=== PATIENT | female | born 1965 | race Caucasian/White ===

== ENCOUNTER 2016-05-23 11:39 | Emergency (ER) | payer OTHER ==
[2016-05-23 12:09] VITALS: BP 142/71
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
--- NOTE | 2016-05-23 12:59 | CT ---
Head wo Cont Total DLP 767 mGycm. INDICATION: trauma, headache and blurred vision COMPARISON: CT 05/31/2010. FINDINGS: No acute intracranial hemorrhage, mass, or edema. Ventricular size is within normal limits . Visualized paranasal sinuses and mastoid air cells are clear. Remainder unremarkable. IMPRESSION: Negative head CT.
[2016-05-23] MEDS ORDERED: Ondansetron 4 MG Tab.DIS PO ONE (13:07)
[2016-05-23] MEDS ORDERED: Ketorolac 60 MG/2 ML SDV IM ONE (13:07)
== END 2016-05-23 14:21 | disposition home or self-care (01) ==
LOC: JP.ED 11:39
DX: S06.0X0A Concussion without loss of consciousness, initial encounter (principal); R01.1 Cardiac murmur, unspecified; E03.9 Hypothyroidism, unspecified; F17.210 Nicotine dependence, cigarettes, uncomplicated; Z98.890 Other specified postprocedural states; Z88.0 Allergy status to penicillin; W22.8XXA Striking against or struck by other objects, initial encounter
CPT/HCPCS: 70450; 96372; 99284; A9270; J1885; 99283

== ENCOUNTER 2016-08-26 23:36 | Emergency (ER) | payer OTHER ==
[2016-08-27 00:46] VITALS: BP 143/87
[2016-08-27] MEDS ORDERED: Ketorolac 30 MG/ML SDV IVPUSH ONE (01:03)
[2016-08-27] MEDS ORDERED: Prochlorperazine 10 MG/2 ML SDV IVPUSH ONE (01:04)
[2016-08-27] MEDS ORDERED: diphenhydrAMINE 50 MG/ML SDV IVPUSH ONE (01:04)
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
[2016-08-27] MEDS: Sodium Chloride 0.9% 10 ML Syringe FLUSH PRN ×3 (01:11→01:31)
[2016-08-27] MEDS ORDERED: Sodium Chloride 0.9% 1,000 ML IV SCH (01:15)
[2016-08-27] MEDS ORDERED: Haloperidol Lactate 5 MG/ML SDV IVPUSH ONE (01:49)
[2016-08-27] MEDS ORDERED: Dexamethasone 4 MG/ML SDV IVPUSH ONE (01:49)
== END 2016-08-27 03:19 | disposition home or self-care (01) ==
LOC: JP.ED 23:36
DX: G43.909 Migraine, unspecified, not intractable, without status migrainosus (principal); E03.9 Hypothyroidism, unspecified; F17.210 Nicotine dependence, cigarettes, uncomplicated; Z88.0 Allergy status to penicillin
CPT/HCPCS: 96361; 96374; 96375; 99283; J0780; J1100; J1200; J1630; J1885; J7040; J7050

== ENCOUNTER 2016-12-27 14:23 | Observation (INO) | payer MEDICAID, OTHER ==
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
--- NOTE | 2016-12-27 18:41 | PCM.HP ---
H&P History of Present Illness - General Date of Service: 12/27/16 Admit Problem/Dx: Admission Diagnosis/Problem Admission Diagnosis/Problem Chest pain Source of Information: Patient, Provider, RN Notes Reviewed History Limitations: Reports: No Limitations - History of Present Illness Initial Comments - Free Text/Narative: Ms. Galvan is a 51-year-old woman who is admitted to observation status for further evaluation and management of chest pain. She was feeling well until she woke last night at 10:30 with very rapid heart rate that lasted a minute or 2 and was associated with intense pain in her left upper chest. After heart rate returned to normal pain seemed to improve significantly but did not totally resolved. She was able to sleep until this morning but when she woke up noted an ache in her left upper chest described as moderate, pain has been present ever since this morning. She denies any fevers chills sweats or productive cough. Pain does radiate into the left shoulder and down into the left arm as well as into the posterior neck. She is noted no precipitating or relieving factors. Risk factor for coronary artery disease includes a [id number]-[id number] smoking history as well as a family history of coronary artery disease. She denies a personal history of hypertension, hypercholesterolemia, or diabetes. Chest Pain Score (Numeric/FACES): 6 - Related Data Allergies/Adverse Reactions: Allergies Allergy/AdvReac Type Severity Reaction Status Date / Time Penicillins Allergy Hives Verified 12/27/16 15:03 Home Medications: Home Meds Baclofen [Baclofen] 10 mg PO TID 12/27/16 [History] Propranolol HCl [Inderal LA] 60 mg PO DAILY 12/27/16 [History] Past Medical History HEENT History: Reports: Impaired Vision Cardiovascular History: Reports: Heart Murmur [employer]ER History: Reports: Musculoskeletal History: Reports: None Neurological History: Reports: Concussion, Headaches, Chronic Other Neuro History: Concussion May 22 2016 Endocrine/Metabolic History: Reports: Hypothyroidism - Infectious Disease History Infectious Disease History: Reports: Chicken Pox, Measles, Mumps - Past Surgical History Female Surgical History: Reports: Tubal Ligation Endocrine Surgical History: Reports: Thyroidectomy Other Musculoskeletal Surgeries/Procedures:: 1st ribs removed on both right and left Social & Family History - Tobacco Use Smoking Status *Q: Current Every Day Smoker Years of Tobacco use: 37 Packs/Tins Daily: 0.5 - Caffeine Use Caffeine Use: Reports: Coffee - Alcohol Use Days Per Week of Alcohol Use: 3 Number of Drinks Per Day: 3 Total Drinks Per Week: 9 - Recreational Drug Use Recreational Drug Use: No H&P Review of Systems - Review of Systems: Review Of Systems: See Below General: Denies: Fever, Chills, Weakness, Diaphoresis HEENT: Reports: No Symptoms Pulmonary: Reports: No Symptoms Cardiovascular: Reports: Chest Pain, Palpitations. Denies: Dyspnea on Exertion , Orthopnea, PND, Edema, Lightheadedness Gastrointestinal: Reports: No Symptoms Genitourinary: Reports: No Symptoms Musculoskeletal: Reports: No Symptoms Skin: Reports: No Symptoms Psychiatric: Reports: No Symptoms Neurological: Reports: Headache. Denies: Confusion, Dizziness, Numbness, Weakness, Change in Speech Hematologic/Lymphatic: Reports: No Symptoms Immunologic: Reports: No Symptoms Exam - Exam Exam: See Below - Vital Signs Vital Signs: Last Vital Signs Temp 96.4 F 12/27/16 14:52 Pulse 57 L 12/27/16 16:25 Resp 16 12/27/16 16:25 BP 115/55 L 12/27/16 16:25 Pulse Ox 100 12/27/16 16:25 Weight: 137 lb 9.095 oz - Exam Quality Assessment: DVT Prophylaxis General: Alert, Oriented, Cooperative, Mild Distress HEENT: Conjunctiva Clear, Hearing Intact, Mucosa Moist & [place], Normal Nasal Septum, Posterior Pharynx Clear, Pupils Equal Neck: Supple, Trachea Midline, +2 Carotid Pulse wo Bruit Lungs: Clear to Auscultation, Normal Respiratory Effort Cardiovascular: Regular Rate, Regular Rhythm, Normal S1, Normal S2. No: Tachycardia, Systolic Murmur, Diastolic Murmur GI/Abdominal Exam: Normal Bowel Sounds, Soft, Non-Tender, No Organomegaly, No Distention Back Exam: Normal Inspection, Full Range of Motion Extremities: Non-Tender, No Pedal Edema Skin: Warm, Dry, Intact Neurological: Cranial Nerves Intact, Strength Equal Bilateral, Normal Speech, Normal Tone, Sensation Intact. No: Focal Deficit Neuro Extensive - Mental Status: Alert, Oriented x3, Normal Mood/Affect, Normal Cognition, Memory Intact - Patient Data Result Diagrams: 12/27/16 15:58 12/27/16 15:58 *Q Meaningful Use (ADM) - VTE *Q VTE Criteria *Q: - VTE Risk Assess *Q Each Risk Factor Represents 1 Point: Age 41 - 59 years Total Score 1 Point Risk Factors: 1 Each Risk Factor Represents 2 Points: None Total Score 2 Point Risk Factors: 0 Each Risk Factor Represents 3 Points: None Total Score 3 Point Risk Factors: 0 Each Risk Factor Represents 5 Points: None Total Score 5 Point Risk Factors: 0 Venous Thromboembolism Risk Factor Score *Q: 1 - Stroke *Q Stroke Criteria *Q: - AMI *Q AMI Criteria *Q: Problem List Initiated/Reviewed/Updated: Yes Orders Last 24hrs: Active Orders 24 hr Category Date Time Status Resuscitation Status Routine Resus Stat 12/27/16 18:15 Ordered Assessment/Plan Comment:: ASSESSMENT AND PLAN CHEST PAIN-onset this morning and present throughout the day. Following an episode of rapid heart rate and intense pain last night that lasted at most a few minutes. No previous history of heart disease, there is family history of coronary artery disease as well as a personal history of smoking 35 pack years. Heart score of 4. -Observation admission -Serial troponin levels -Exercise Cardiolite study in a.m. MAINTENANCE ISSUES -DVT prophylaxis; SCUDs -GI prophylaxis; not indicated -Machado catheter; not indicated -Nutrition; regular diet -Nicotinic dependence; 21 mg nicotinic patch CODE STATUS-FULL CODE ADMISSION STATUS-this patient will be admitted to observation status, expect no more than a one night hospital stay for evaluation and management of problems as outlined above. DISPOSITION-anticipate discharge to home after the hospital stay. PRIMARY CARE PROVIDER-
[2016-12-27] MEDS ORDERED: Acetaminophen 325 MG Tab PO PRN (18:49)
[2016-12-27] MEDS ORDERED: Sodium Chloride 0.9% 10 ML Syringe FLUSH PRN (18:49)
[2016-12-27] MEDS ORDERED: Ondansetron 4 MG/2 ML SDV IV PRN (18:49)
[2016-12-27] MEDS ORDERED: Magnesium Hydroxide 400 MG/5 ML Susp 30 ML Cup PO PRN (18:49)
[2016-12-27] MEDS ORDERED: Docusate Sodium 100 MG Cap PO PRN (18:49)
[2016-12-27] MEDS ORDERED: Nicotine Polacrilex 2 MG Gum CHEW PRN (18:52)
[2016-12-27] MEDS: Baclofen 10 MG Tab PO SCH ×2 (19:33→20:03)
[2016-12-27] MEDS: Nicotine 21 MG/24 Hr Patch TRDERM SCH (20:02)
[2016-12-27] MEDS: oxyCODONE 5 MG Tab PO PRN (20:58)
[2016-12-27] MEDS ORDERED: cefTRIAXone 1 GM in Sodium Chloride 0.9% 50 ML IV SCH (23:00)
[2016-12-27] MEDS: HYDROmorphone 0.5 MG/0.5 ML Syringe IVPUSH PRN (23:04)
[2016-12-28] MEDS: HYDROmorphone 0.5 MG/0.5 ML Syringe IVPUSH PRN ×3 (05:15→12:45)
[2016-12-28] MEDS: Baclofen 10 MG Tab PO SCH ×2 (08:35→14:28)
[2016-12-28] MEDS: Nicotine 21 MG/24 Hr Patch TRDERM SCH (08:35)
--- NOTE | 2016-12-28 08:38 | CR ---
Heart size within normal limits. Surgical clips about the apices bilaterally. Prominent vasculature w ithin normal limits. Mild increased attenuation within the lung bases bilaterally right greater than left. This may relate to overlying soft tissues only but recommend lateral view follow-up.
[2016-12-28] MEDS: oxyCODONE 5 MG Tab PO PRN (11:38)
--- NOTE | 2016-12-28 14:17 | NM ---
Nuclear medicine myocardial perfusion scan. Technique: 10.05 mCi technetium Myoview administered at rest and 28.0 mCi technetium Myoview administ ered at stress. Alonzo protocol. Patient did not reached targeted heart rate. Findings: Small defect within the base of the myocardium on stress images at the anterior septal myoc ardial wall is not well-visualized on planar images. It is evident on Polar map images. Heart wall mo tion within normal limits. Ejection fraction on stress is 60% and 61% on rest. Impression: 1. Small defect which appears reversible within the base of the myocardium on stress images. This is nonvisualized on planar images and would favor artifact over ischemia. Otherwise no evidence for defe cts on stress imaging.
[2016-12-28] MEDS ORDERED: Sodium Chloride 0.9% 10 ML Syringe FLUSH PRN (14:29)
[2016-12-28] MEDS ORDERED: Iopamidol 755 Mg/ML 100 ML Bottle IV SCH (14:30)
[2016-12-28 15:57] VITALS: BP 104/55
--- NOTE | 2016-12-28 17:12 | PCM.DCSUM1 ---
Discharge Summary - Hospital Course Brief History: Ms. Galvan is a 51-year-old woman admitted through the emergency department observation status for further evaluation and management of chest pain. - Discharge Data Discharge Date: 12/28/16 Discharge Disposition: Home, Self-Care 01 Condition: Good - Discharge Diagnosis/Problem(s) (1) UTI (urinary tract infection) SNOMED Code(s): 59077674 ICD Code: N39.0 - URINARY TRACT INFECTION, SITE NOT SPECIFIED Status: Acute Current Visit: Yes (2) Chest pain SNOMED Code(s): 59796248 ICD Code: R07.9 - CHEST PAIN, UNSPECIFIED Status: Acute Current Visit: Yes - Patient Summary/Data Hospital Course: Ms. Galvan is a 51-year-old woman admitted through the emergency department observation status for further evaluation of chest pain. She woke in the evening prior to admission with rapid heart rate and severe pain in her left upper chest. Symptoms lasted just a minute or 2 and then resolved and she was able to get back to sleep. When she woke in the morning noted moderate pressure sensation in her left upper chest described as an ache, pain radiated to the back of her neck as well as into the left shoulder and arm. Pain was persistent and did not change with activity or position. She noted no other precipitating or relieving factors, it was associated with some shortness of breath. Initial EKG showed nonspecific ST segment changes and troponin was within normal range. Risk factors for coronary artery disease include a positive family history as well as a 20-ymrl-ugfr smoking history. Heart score was calculated and found to be 4. She was admitted to observation status, serial troponin levels were obtained and were within normal range. Pain persisted through the night and into the next day of hospitalization. Exercise Cardiolite study was obtained, she was able to exercise for 11 minutes on the Alonzo protocol, pain did increase with level of activity. Treadmill exercise portion study was interpreted as negative showing no evidence of ischemia. Cardiolite study showed only a very small area of reperfusion that was felt to be most likely artifact. Because of persistent pain CT scan of the chest was obtained with contrast and showed no evidence of pulmonary embolism, infiltrate, or other significant abnormality. She will be discharged home, activity will be as tolerated and she will resume her usual diet. Follow-up appointment will be scheduled with her primary care provider within one week. - Patient Instructions Diet: Usual Diet as Tolerated Activity: As Tolerated Other/Special Instructions: Please schedule follow-up appointment with Berry Ozuna within 1 week. - Discharge Plan Prescriptions/Med Rec: Sulfamethoxazole/Trimethoprim [Septra DS] 1 each PO BID #14 tab Home Medications: Home Meds Baclofen 10 mg PO TID 12/27/16 [History] Sulfamethoxazole/Trimethoprim [Septra DS] 1 each PO BID #14 tab 12/28/16 [Rx] Referrals: Berry Ozuna PA-C [Primary Care Provider] - - Patient Data Vitals - Most Recent: Last Vital Signs Temp 96.6 F 12/28/16 08:00 Pulse 62 12/28/16 15:00 Resp 15 12/28/16 15:00 BP 104/55 L 12/28/16 15:00 Pulse Ox 99 12/28/16 15:00 Weight - Most Recent: 135 lb 12.876 oz I&O - Last 24 hours: Intake & Output 12/28/16 12/28/16 12/28/16 06:59 14:59 22:59 Intake Total 750 850 Output Total 300 400 Balance 450 450 Lab Results - Last 24 hrs: Laboratory Results - last 24 hr 12/27/16 12/27/16 12/28/16 Range/Units 21:07 21:57 05:05 Troponin I < 0.017 < 0.017 (0.000-0.056) ng/mL Urine Color Yellow Urine Appearance Slightly cloudy Urine pH 5.0 (4.5-8.0) Ur Specific [place] 1.020 (1.008-1.030) Urine Protein Negative (NEGATIVE) mg/dL Urine Glucose (UA) Normal (NEGATIVE) mg/dL Urine Ketones Negative (NEGATIVE) mg/dL Urine Occult Blood Large (NEGATIVE) Urine Nitrite Positive H (NEGATIVE) Urine Bilirubin Negative (NEGATIVE) Urine Urobilinogen Normal (NORMAL) mg/dL Ur Leukocyte Esterase Negative (NEGATIVE) Urine RBC 0-5 (0-5) Urine WBC 5-10 H (0-5) Ur Epithelial Cells Few Amorphous Sediment Not seen Urine Bacteria Many Urine Mucus Moderate Med Orders - Current: Current Medications Acetaminophen (Tylenol) 650 mg PO Q4H PRN PRN Reason: Pain (Mild 1-3)/fever Last Admin: 12/27/16 20:03 Dose: 650 mg Baclofen (Lioresal) 10 mg PO TID [facility] Last Admin: 12/28/16 14:28 Dose: 10 mg Docusate Sodium (Colace) 100 mg PO BID PRN PRN Reason: Constipation Hydromorphone HCl (Dilaudid) 0.5 mg IVPUSH Q2H PRN PRN Reason: Chest Pain Last Admin: 12/28/16 12:45 Dose: 0.5 mg Ceftriaxone Sodium 1 gm/ (Sodium Chloride) 50 mls @ 100 mls/hr IV Q24H [facility] Last Admin: 12/27/16 23:07 Dose: 100 mls/hr Magnesium Hydroxide (Milk Of Magnesia) 30 ml PO Q12H PRN PRN Reason: Constipation Nicotine (Habitrol) 21 mg TRDERM DAILY [facility] Last Admin: 12/28/16 08:35 Dose: 21 mg Nicotine Polacrilex (Nicorelief) 2 mg CHEW Q1H PRN PRN Reason: Other Ondansetron HCl (Zofran) 4 mg IV Q4H PRN PRN Reason: Nausea/Vomiting Oxycodone HCl (Oxycodone) 5 mg PO Q4H PRN PRN Reason: Pain (moderate 4-6) Last Admin: 12/28/16 11:38 Dose: 5 mg Sodium Chloride (Saline Flush) 10 ml FLUSH ASDIRECTED PRN PRN Reason: Keep Vein Open Last Admin: 12/28/16 14:51 Dose: 10 ml Discontinued Medications Sodium Chloride (Normal Saline) 70 mls @ 3 mls/sec IV ASDIRECTED ONE Stop: 12/28/16 14:30 Last Admin: 12/28/16 14:51 Dose: 3 mls/sec Iopamidol (Isovue-370 (76%)) 100 ml IV . DIRECTED [facility] Stop: 12/28/16 15:00 Last Admin: 12/28/16 14:51 Dose: 100 ml Sodium Chloride (Saline Flush) 10 ml FLUSH . DIRECTED PRN PRN Reason: [id number] EXAM Stop: 12/28/16 15:00 *Q Meaningful Use (DIS) - VTE *Q VTE Criteria *Q: - Stroke *Q Stroke Criteria *Q: - AMI *Q AMI Criteria *Q:
--- NOTE | 2016-12-29 10:53 | STRESS ---
DATE OF SERVICE: 12/28/2016 PROCEDURE: Exercise Cardiolite study. TECHNIQUE: Ms. Galvan was exercised for 11 minute on the Alonzo protocol for the exercise portion of the exercise Cardiolite study. She completed 2 minutes of stage IV at 4.2 miles/hour and 16 degrees elevation. Test was stopped because of symptoms of chest pressure and shortness of breath. She was able to reach a pressure rate of 15,700 and a workload of 12.8 METS. Resting heart rate was 73 and went to 133 with exercise, this was equal to 79% of predicted maximal heart rate. Resting blood pressure was 98/60 and went to 118/72 with exercise. Resting ECG, sinus rhythm, rate of 62, normal axis and intervals. Otherwise, normal appearing EKG. No significant changes were seen on the post hyperventilation or standing ECGs. There were no significant ST-segment changes, T-wave abnormalities seen with exercise or in the post exercise period. She did experience symptoms as reported above. Occasional premature ventricular complexes were noted throughout the monitoring period. IMPRESSION: Negative treadmill exercise test with adequate level of exercise, close to 85% of predicted maximal heart rate was reached with this level of exercise. Michoacano Gonsalez MD /[id number]
== END 2016-12-28 17:19 | disposition home or self-care (01) ==
LOC: JP.ED 14:23 → JP.ICU 18:14
PROVIDERS: ADMIT Hospitalist; ATTEND Hospitalist
DX: R07.9 Chest pain, unspecified (principal); E89.0 Postprocedural hypothyroidism; N39.0 Urinary tract infection, site not specified; Z82.49 Family history of ischemic heart disease and other diseases of the circulatory system; Z88.0 Allergy status to penicillin; Z98.51 Tubal ligation status; Z90.89 Acquired absence of other organs; F17.210 Nicotine dependence, cigarettes, uncomplicated
CPT/HCPCS: 36415; 71010; 71275; 78452; 80053; 81001; 84439; 84443; 84484; 85025; 87086; 87186; 93005; 93010; 93017; 96365; 96375; 96376; 99285; A9270; A9500; G0378; J0696; J1170; J7030; J7050; Q9967; 99217; 99219

== ENCOUNTER 2017-07-18 07:33 | Day surgery (SDC) | payer MEDICAID ==
[2017-07-18] MEDS ORDERED: fentaNYL 100 MCG/2 ML SDV ONE (08:15)
[2017-07-18] MEDS ORDERED: Lactated Ringers 1,000 ML IV SCH (08:15)
[2017-07-18] MEDS ORDERED: Midazolam 1 MG/ML 2 ML SDV ONE (08:16)
[2017-07-18] MEDS ORDERED: Propofol 200 MG/20 ML SDV ONE (08:16)
[2017-07-18 10:07] VITALS: BP 105/63
--- NOTE | 2017-07-19 08:13 | OR ---
DATE OF PROCEDURE: 07/18/2017 PREOPERATIVE DIAGNOSIS: Colon cancer screening. POSTOPERATIVE DIAGNOSIS: Two small colon polyps, mid-transverse colon and splenic flexure. PROCEDURES: Colonoscopy to the cecum with biopsy resection of 2 small colon polyps. ANESTHESIA: IV anesthesia with monitored anesthesia care. INDICATION: This 52-year-old white female is referred for a colonoscopy for colon cancer screening. She has never had a colonoscopic exam. I counseled her for the procedure including risks and alternatives, and she gave her informed consent to proceed. DESCRIPTION OF PROCEDURE: The patient was placed in the left lateral decubitus position. IV anesthesia was administered by the Anesthesia Service. Time-out was held. A rectal exam was performed, which was unremarkable. The flexible video Olympus colonoscope was introduced through her anus, up her rectum, and out her colon, all the way to the cecum. Once the cecum was reached, the scope was slowly withdrawn, examining the mucosa throughout. In the mid-transverse colon, we saw a small polyp, which was removed with a few bites of biopsy forceps. At the splenic flexure, we encountered another small polyp, which was removed with a few bites of biopsy forceps. No other lesions were noted. The scope was retroflexed in the rectum with the distal rectum appearing unremarkable. The scope was straightened and removed. She tolerated the procedure well. Simón Hooks MD /[id number]
== END 2017-07-18 10:10 | disposition home or self-care (01) ==
LOC: JP.SDS 07:33
PROVIDERS: ATTEND Surgery
DX: Z12.11 Encounter for screening for malignant neoplasm of colon (principal); D12.3 Benign neoplasm of transverse colon; F17.200 Nicotine dependence, unspecified, uncomplicated; Z88.0 Allergy status to penicillin; Z88.8 Allergy status to other drugs, medicaments and biological substances
CPT/HCPCS: 45380; 88305; J2250; J2704; J3010; J7120

== ENCOUNTER 2022-01-24 07:20 | Day surgery (SDC) | payer MEDICARE ==
[2022-01-24] MEDS ORDERED: Lactated Ringers 1,000 ML IV SCH (08:00)
[2022-01-24] MEDS ORDERED: fentaNYL 50 MCG/ML SDV ONE (08:01)
[2022-01-24] MEDS ORDERED: Midazolam 1 MG/ML 2 ML SDV ONE (08:01)
[2022-01-24] MEDS ORDERED: Propofol 200 MG/20 ML SDV ONE (08:01)
[2022-01-24 10:38] VITALS: BP 97/50; PULSE 63
== END 2022-01-24 10:38 | disposition home or self-care (01) ==
LOC: JP.SDS 07:20
PROVIDERS: ATTEND Family Medicine
DX: Z12.11 Encounter for screening for malignant neoplasm of colon (principal); D12.5 Benign neoplasm of sigmoid colon; F17.200 Nicotine dependence, unspecified, uncomplicated; Z86.010 Personal history of colon polyps; Z88.0 Allergy status to penicillin; Z88.8 Allergy status to other drugs, medicaments and biological substances; Z98.890 Other specified postprocedural states; Z79.899 Other long term (current) drug therapy
CPT/HCPCS: 45380; 88305; J2250; J2704; J3010; J7120